=== PATIENT | male | born 1995 | race African-American/Black ===

== ENCOUNTER 2019-03-14 08:32 | Emergency (ER) | payer BC, MEDICAID ==
[2019-03-14 10:05] VITALS: BP 117/76
[2019-03-14] MEDS ORDERED: Ibuprofen TAB* 600 MG PO ONE (10:07)
--- NOTE | 2019-03-14 10:12 | ED ---
Upper Extremity Pain - HPI Summary HPI Summary: Patient is a 23-year-old male who presents to the ED with right sided wrist pain from a fall 2 days ago. He states he continues to be able flex and extend about the wrist. He denies any numbness or tingling. He denies any color or temperature changes. He endorses slight swelling to the dorsum of the wrist. Continues to be able to move about his hand and wrist, however with some discomfort with flexion and extension of the wrist. Continues to be able to rotate about the wrist. He denies any other injuries during the fall, denies hitting his head or any LOC. No abrasions or other signs of trauma are noted. - History of Current Complaint Chief Complaint: EDExtremityUpper Stated Complaint: RT WRIST INJ FROM FALL Time Seen by Provider: 03/14/19 09:06 Hx Obtained From: Patient Mechanism Of Injury: Fall From A Standing Position Onset/Duration: Started Hours Ago Timing: Constant Severity Initially: Mild Severity Currently: Mild Pain Location: Wrist Character: Aching Aggravating Factor(s): Movement, Lifting, Flexion, Extension Alleviating Factor(s): Rest Associated Signs & Symptoms: Positive: Swelling. Negative: Redness, Bruising, Weakness, Numbness/Tingling Related History: Dominant Hand Right - Risk Factors Non-Orthopedic Risk Factor: Negative DVT Risk Factors: Negative Septic Arthritis Risk Factor: Negative Compartment Syndrome Risk Factors: Pain - Allergies/Home Medications Allergies/Adverse Reactions: Allergies Allergy/AdvReac Type Severity Reaction Status Date / Time No Known Allergies Allergy Verified 03/14/19 08:40 PMH/Surg Hx/FS Hx/Imm Hx Previously Healthy: Yes - Immunization History Hx Pertussis Vaccination: No Immunizations Up to Date: Yes Infectious Disease History: No Infectious Disease History: Denies: Traveled Outside the [place] in Last 30 Days - Social History Occupation: Employed Full-time Lives: With Family Alcohol Use: None Hx Substance Use: No Substance Use Type: Reports: None Smoking Status (MU): Never Smoked Tobacco Review of Systems Negative: Fever, Chills, Fatigue, Skin Diaphoresis Negative: Palpitations, Chest Pain Negative: Shortness Of Breath, Cough Genitourinary: Negative Positive: no symptoms reported, see HPI Positive: Arthralgia - right dorsal wrist pain Skin: Negative Neurological: Negative All Other Systems Reviewed And Are Negative: Yes Physical Exam Triage Information Reviewed: Yes Vital Signs On Initial Exam: Initial Vitals Temp Pulse Resp BP Pulse Ox 98.0 F 73 18 122/74 97 03/14/19 08:38 03/14/19 08:38 03/14/19 08:38 03/14/19 08:38 03/14/19 08:38 Vital Signs Reviewed: Yes Appearance: Positive: Well-Appearing, Well-Nourished Skin: Positive: Warm, Skin Color Reflects Adequate Perfusion Head/Face: Positive: Normal Head/Face Inspection Eyes: Positive: EOMI, Conjunctiva Clear Neck: Positive: Nontender Respiratory/Lung Sounds: Positive: Clear to Auscultation, Breath Sounds Present Cardiovascular: Positive: Pulses are Symmetrical in both Upper and Lower Extremities Musculoskeletal: Positive: Pain @ - with flexion and extension of the wrist - no swelling or signs of trauma Neurological: Positive: Speech Normal Psychiatric: Positive: Affect/Mood Appropriate AVPU Assessment: Alert Diagnostics - Vital Signs Vital Signs Temp Pulse Resp BP Pulse Ox 03/14/19 10:04 98.5 F 59 16 117/76 99 03/14/19 08:38 98.0 F 73 18 122/74 97 - Laboratory Lab Statement: Any lab studies that have been ordered have been reviewed, and results considered in the medical decision making process. Course/Dx - Course Course Of Treatment: On physical examination, patient has good strength bilaterally. No numbness or tingling per patient. Thumb opposition intact. No evidence or signs of trauma. Patient able to flex and extend well about the wrist and no swelling is noted. X-ray obtained which shows no evidence of wrist fracture. He will be diagnosed with wrist strain/sprain and wrist was shanthi wrapped. 600mg ibuprofen given in ED. - Diagnoses Differential Diagnosis/HQI/PQRI: Positive: Strain, Sprain Provider Diagnoses: Strain of wrist, right Discharge - Sign-Out/Discharge Documenting (check all that apply): Patient Departure Patient Received Moderate/Deep Sedation with Procedure: No - Discharge Plan Condition: Stable Disposition: HOME Patient Education Materials: Wrist Sprain (ED) Referrals: Emiliano Pace MD [Primary Care Provider] - Additional Instructions: Ibuprofen 600mg three times daily ice to the area For any worsening symptoms, return to the ED - Billing Disposition and Condition Condition: STABLE Disposition: Home
== END 2019-03-14 10:04 | disposition home or self-care (01) ==
LOC: ED 08:32
DX: S66.911A Strain of unspecified muscle, fascia and tendon at wrist and hand level, right hand, initial encounter (principal); W19.XXXA Unspecified fall, initial encounter; Y92.9 Unspecified place or not applicable
CPT/HCPCS: 99282; A9270-GY